=== PATIENT | male | born 1940 | race Caucasian/White ===

== ENCOUNTER 2019-04-14 09:11 | Day surgery (SDC) | payer MEDICARE, OTHER ==
[~2019-04-14 09:11] MED LIST: ACETAMINOPHEN 1,000 MG/100 ML BTL IVPB ONE
[2019-04-14] MEDS ORDERED: LIDOCAINE 2% MDV (20MG/ML) 20ML VIAL IV ONE (09:12)
[2019-04-14] MEDS ORDERED: FENTANYL PF 100MCG/2ML VIAL IV ONE (09:12)
[2019-04-14] MEDS ORDERED: PROPOFOL 10 MG/ML VIAL IV ONE (09:12)
[2019-04-14] MEDS ORDERED: MIDAZOLAM HCL 2MG/2ML VIAL IV ONE (09:12)
[2019-04-14] MEDS ORDERED: RINGERS SOLUTION,LACTATED 1,000 ML IV ONE (10:30)
[2019-04-14] MEDS ORDERED: LIDOCAINE 1% MPF 100MG/10ML STERILE-PAK AMPULE SQ ONE (11:37)
--- NOTE | 2019-04-15 12:52 | Operative Note ---
DATE OF SURGERY: 04/14/2019 SURGEON: Sundeep Sosa D.O. REFERRING PHYSICIAN: Александр Muniz M.D. PREOPERATIVE DIAGNOSIS: CARPAL TUNNEL SYNDROME OF THE LEFT WRIST. POSTOPERATIVE DIAGNOSIS: CARPAL TUNNEL SYNDROME OF THE LEFT WRIST. OPERATION: DECOMPRESSION LEFT MEDIAN NERVE OF THE WRIST USING 3.5 LOUPE MAGNIFICATION. DESCRIPTION: This 78-year-old male was taken to the Operating Room and placed in the supine position on the operating room table. Assisted local anesthesia was induced and 1% Xylocaine plain was used as a local anesthetic in the palm. After prepping and draping in the usual sterile fashion, the left upper extremity was exsanguinated and the tourniquet inflated to 250 mmHg. A palmar incision was utilized from the level of the base of the web space of the thumb to the flexor crease of the wrist. Dissection was carried down through the skin and subcutaneous tissue. Hemostasis was obtained with the electrocautery. The palmar fascia was divided in line with the skin incision to expose the flexor retinaculum which was punctured, split to its proximal margin and then with contents of the carpal tunnel under direct vision the transverse carpal ligament was transected along its ulnar border and the radial flap was raised to expose the entire median nerve under the transverse carpal ligament. The recurrent motor branch of the median nerve was identified and was not further disturbed. The wound was irrigated with lactated Ringer's solution, the tourniquet was released, and hemostasis was obtained with the electrocautery. The wound was closed with interrupted 6-0 nylon suture to the skin. Sterile dressings were applied with a plaster splint immobilization with the wrist in slight dorsiflexion and the thumb in an adducted position. The patient was taken to the Recovery Room in satisfactory condition. GROSS PATHOLOGY: This patient demonstrated minor atrophic changes of the median nerve, but was otherwise unremarkable. JOB NUMBER: [id number] MTDD
== END 2019-04-14 12:40 | disposition home or self-care (01) ==
LOC: SUR 09:11
PROVIDERS: ATTEND Orthopaedic Surgery
DX: G56.02 Carpal tunnel syndrome, left upper limb (principal); H40.9 Unspecified glaucoma; F43.10 Post-traumatic stress disorder, unspecified; I10 Essential (primary) hypertension; E66.9 Obesity, unspecified
CPT/HCPCS: 64721; 64727; 01810; J3010; J3490; J7120